=== PATIENT | female | born 1990 | race Two or more races ===

== ENCOUNTER 2021-06-05 18:53 | Observation (INO) | payer SELFPAY ==
[~2021-06-05] VITALS: Ht 152.4 cm; Wt 60.3 kg
[2021-06-05 19:37] VITALS: BP 107/70
[2021-06-05] MEDS ORDERED: EPINEPHRINE 1 MG/ML, 1ML ONE (19:44)
[2021-06-05] MEDS ORDERED: SILVER NITRATE STICK TP ONE (19:44)
[2021-06-05] MEDS ORDERED: BUPIVACAINE/PF 0.25% ONE (19:44)
[2021-06-05] MEDS ORDERED: FENTANYL PF 250 MCG/5ML ONE (19:53)
[2021-06-05] MEDS ORDERED: MIDAZOLAM 1 MG/ML, 2ML ONE (19:53)
[2021-06-05] MEDS ORDERED: PROPOFOL 50 ML ONE (19:53)
[2021-06-05] MEDS ORDERED: ONDANSETRON 2MG/ML, 2ML IVPush PRN (20:00)
[2021-06-05] MEDS ORDERED: MEPERIDINE/PF 25MG/0.5ML IVPush PRN (20:00)
[2021-06-05] MEDS ORDERED: ACETAMINOPHEN 325 MG TABLET PO PRN (20:00)
[2021-06-05] MEDS ORDERED: OXYcodone 5 MG/5 ML ORAL.SOL UDC PO PRN (20:00)
[2021-06-05] MEDS ORDERED: EPHEDRINE 50 MG/ML, 1ML IVPush PRN (20:00)
[2021-06-05] MEDS ORDERED: PROMETHAZINE 25 MG/ML, 1ML IVPush PRN (20:00)
[2021-06-05] MEDS ORDERED: morphine SULFATE 10 MG/ML, 1ML IVPush PRN (20:00)
[2021-06-05] MEDS ORDERED: DIPHENHYDRAMINE 50 MG/ML, 1ML IVPush PRN (20:00)
[2021-06-05] MEDS ORDERED: DIAZEPAM 5 MG/ML, 2ML IVPush PRN (20:00)
[2021-06-05] MEDS ORDERED: LABETALOL 5MG/ML, 20ML IV PRN (20:00)
[2021-06-05] MEDS ORDERED: EPHEDRINE 50 MG/ML, 1ML IM PRN (20:00)
[2021-06-05] MEDS ORDERED: ROCURONIUM 10 MG/ML,10ML ONE (21:13)
[2021-06-05] MEDS ORDERED: SUCCINYLCHOLINE 20 MG/ML, 10ML ONE (21:38)
[2021-06-05] MEDS ORDERED: ONDANSETRON 2MG/ML, 2ML ONE (21:38)
[2021-06-05] MEDS ORDERED: OXYC1TAB14 PO ×2 (22:19→22:22)
[2021-06-05 22:40] LABS: BASOPHILS % (AUTO) 1 % (0-1); EOSINOPHILS % (AUTO) 1 % (1-7); LYMPHOCYTES % (AUTO) 18 % (22-44); MEAN CORPUSCULAR HEMOGLOBIN 30.5 pg (27.5-34.5); MEAN PLATELET VOLUME 7.8 fL (7.4-10.4); MONOCYTES % (AUTO) 5 % (2-9); NEUTROPHILS % (AUTO) 76 % (42-75); PLATELET COUNT 280 x10^3/uL (130-400); RED BLOOD COUNT 3.99 x10^6/uL (4.38-5.82); RED CELL DISTRIBUTION WIDTH 13.1 % (9.4-14.8)
[2021-06-05] MEDS ORDERED: ACETAMINOPHEN 650 MG/20.3 ML UDC ONE (22:51)
[2021-06-05] MEDS ORDERED: FENTANYL PF 100 MCG/2ML ONE (22:51)
[2021-06-05] MEDS ORDERED: OXYcodone 5 MG/5 ML ORAL.SOL UDC ONE (22:52)
[2021-06-05] MEDS: FENTANYL PF 100 MCG/2ML IV PRN ×2 (22:55→23:00)
[2021-06-06 00:35] VITALS: BP 107/68
== END 2021-06-06 03:45 | disposition home or self-care (01) ==
LOC: OR 18:53 → 4NE 19:34 → OR 23:17 → EDSEX 23:18 → 4NE 23:18
PROVIDERS: ADMIT Student in an Organized Health Care Education/Training Program; ATTEND Student in an Organized Health Care Education/Training Program
DX: O00.90 Unspecified ectopic pregnancy without intrauterine pregnancy (principal); Z20.822 Contact with and (suspected) exposure to COVID-19; K66.1 Hemoperitoneum; N80.1 Endometriosis of ovary; N80.3 Endometriosis of pelvic peritoneum; Z79.899 Other long term (current) drug therapy
CPT/HCPCS: 36415; 59151; 85025; 86901; 87635; 88305; G0378; J0171; J0330; J2250; J2405; J2704; J3010